=== PATIENT | female | born 1995 | race Hispanic/Latino ===

== ENCOUNTER 2018-11-05 22:31 | Inpatient (IN) | payer OTHER ==
[~2018-11-05 22:31] MED LIST: Bupivacaine/Epinephrine 0.25% 30 ML VIAL ONE
[2018-11-05 22:58] VITALS: BMI 22.4
[2018-11-05] MEDS: Lactated Ringer's 1,000 ML IV SCH (23:15)
[2018-11-05] MEDS ORDERED: Ondansetron PF 4 MG/2 ML Vial IVP PRN (23:19)
[2018-11-05] MEDS ORDERED: Butorphanol Tartrate 1 MG/ML VIAL SLOW IVP PRN (23:19)
[2018-11-05] MEDS ORDERED: Promethazine HCl 25 MG/ML VIAL IM PRN (23:19)
[2018-11-05] MEDS ORDERED: Acetaminophen 500 MG TAB PO PRN (23:19)
[2018-11-05] MEDS ORDERED: Carboprost 250 MCG/ML AMP IM PRN (23:30)
[2018-11-05] MEDS ORDERED: HYDROcodone/Acetaminophen 5/325 mg Tablet PO PRN ×2 (23:30)
[2018-11-05] MEDS ORDERED: Methylergonovine 0.2 MG/ML VIAL IM PRN (23:30)
[2018-11-05] MEDS ORDERED: Ibuprofen 800 MG TAB PO PRN (23:30)
[2018-11-05] MEDS ORDERED: Penicillin G Potassium 5 MILL.UNITS in Sodium Chloride 0.9% 100 ML IVPB SCH (23:30)
[2018-11-05] MEDS ORDERED: Misoprostol 200 MCG TAB RC PRN (23:30)
[2018-11-05] MEDS ORDERED: NS w/ Oxytocin 10 units 500 ML IV SCH ×2 (23:30)
[2018-11-05] MEDS ORDERED: Lidocaine 1% (PF) 30 ML VIAL SC PRN (23:30)
[2018-11-05 23:45] LABS: Hemoglobin 12.2 g/dL (12.0-16.0); Mean Corpuscular HGB CONC 33.4 g/dL (32.0-36.0); Mean Corpuscular Hemoglobin 29.6 pg (27.0-31.0); Mean Corpuscular Volume 88.7 fL (78.0-98.0); Mean Platelet Volume 8.9 fL (7.4-10.4); Platelet Count 249 thou/uL (130-400); RBC Distribution Width 12.3 % (11.5-14.5); Red Blood Cell (RBC) Count 4.12 mill/uL (4.20-5.40); White Blood Cell (WBC) Count 15.9 thou/uL (4.8-10.8)
[2018-11-05] MEDS ORDERED: Lidocaine 1.5%/Epinephrine 1:200,000 5 ML AMPUL IJ ONE (23:47)
[2018-11-05] MEDS ORDERED: Fentanyl 4 mcg/Bup 0.1% Cadd 100 ML ONE (23:48)
[2018-11-06] MEDS: Lactated Ringer's 1,000 ML IV SCH (00:27)
[2018-11-06] MEDS ORDERED: Promethazine HCl 25 MG/ML VIAL IM PRN (00:34)
[2018-11-06] MEDS ORDERED: Lactated Ringer's 500 ML IV PRN (00:34)
[2018-11-06] MEDS ORDERED: Ondansetron PF 4 MG/2 ML Vial IVP PRN ×2 (00:34→01:44)
[2018-11-06] MEDS ORDERED: Eucerin (Mineral Oil/Petrolatum,White) 30 gm Jar TOP PRN (00:34)
[2018-11-06] MEDS ORDERED: Acetaminophen 325 MG TAB PO PRN (00:34)
[2018-11-06] MEDS ORDERED: Naloxone HCl 0.4 mg/ml Vial IVP PRN ×2 (00:34)
[2018-11-06] MEDS ORDERED: ePHEDrine/0.9% NaCl/PF SYRINGE 50 mg/10 ml SLOW IVP PRN (00:34)
[2018-11-06] MEDS ORDERED: diphenhydrAMINE 50 MG/ML VIAL IVP PRN (00:34)
[2018-11-06] MEDS: Penicillin G 2.5 MILL.units 2.5 MILL.UNITS in Premix Bag 1 BAG IVPB SCH ×2 (00:38→00:39)
[2018-11-06] MEDS ORDERED: Communication Order-Pharmacy FS SCH (00:45)
[2018-11-06] MEDS ORDERED: Fentanyl 4 mcg/Bupivacaine 0.1% Cassette 100 ML EPIDURAL SCH (00:45)
[2018-11-06] MEDS: NS / Oxytocin 40 units/1000ml 1,000 ML IV SCH ×2 (01:32→02:58)
[2018-11-06] MEDS ORDERED: Preparation H Ointment 28 GM TUBE PR PRN (01:44)
[2018-11-06] MEDS ORDERED: Milk Of Magnesia 30 ML UDCUP PO PRN (01:44)
[2018-11-06] MEDS ORDERED: Benzocaine/Menthol 20-0.5% 60 ML CAN TOP PRN (01:44)
[2018-11-06] MEDS ORDERED: Misoprostol 200 MCG TAB VAG PRN (01:44)
[2018-11-06] MEDS ORDERED: Bisacodyl 10 MG SUPP PR PRN (01:44)
[2018-11-06] MEDS ORDERED: Zolpidem Tartrate 5 MG TAB PO PRN (01:44)
[2018-11-06] MEDS ORDERED: Acetaminophen/Codeine 30-300mg Tablet PO PRN ×2 (01:44)
[2018-11-06] MEDS ORDERED: diphenhydrAMINE 25 MG CAP PO PRN (01:44)
[2018-11-06] MEDS ORDERED: NS / Oxytocin 40 units/1000ml 1,000 ML IV SCH (01:45)
[2018-11-06 01:54] LABS: Syphilis Antibody Nonreactive (Nonreactive); Syphilis Antibody Index 0.03 S/CO (<1.00 Non-Reactive)
[2018-11-06 02:01] LABS: HBSAg Index 0.22 S/CO (0-0.99); HIV (1/2) Antibody/Antigen Non-Reactive (NonReactive); HIV 1/2 INDEX 0.09 S/CO (<1.00); Hep B Surf Ag Non-Reactive S/CO (NonReactive)
[2018-11-06] MEDS: Ibuprofen 800 MG TAB PO SCH ×2 (05:11→17:23)
[2018-11-06 06:51] LABS: Hemoglobin 10.5 g/dL (12.0-16.0); Mean Corpuscular HGB CONC 32.7 g/dL (32.0-36.0); Mean Corpuscular Hemoglobin 28.8 pg (27.0-31.0); Mean Corpuscular Volume 87.9 fL (78.0-98.0); Mean Platelet Volume 8.6 fL (7.4-10.4); Platelet Count 206 thou/uL (130-400); RBC Distribution Width 12.1 % (11.5-14.5); Red Blood Cell (RBC) Count 3.66 mill/uL (4.20-5.40); White Blood Cell (WBC) Count 21.8 thou/uL (4.8-10.8)
[2018-11-06] MEDS: Ferrous Sulfate 325 MG TAB PO SCH ×2 (07:38→17:24)
[2018-11-06] MEDS ORDERED: Adacel (T-DAP) 0.5 ML SYRINGE IM ONE (09:00)
[2018-11-06] MEDS: Prenatal Vitamin 1 TAB PO SCH (09:05)
[2018-11-06] MEDS: Docusate Calcium (SURFAK) 240 MG CAP PO SCH (09:05)
[2018-11-07] MEDS: Ibuprofen 800 MG TAB PO SCH ×4 (00:42→21:28)
[2018-11-07] MEDS: Docusate Calcium (SURFAK) 240 MG CAP PO SCH ×3 (00:42→21:28)
[2018-11-07] MEDS: Ferrous Sulfate 325 MG TAB PO SCH ×2 (07:34→16:39)
[2018-11-07] MEDS: Prenatal Vitamin 1 TAB PO SCH (09:18)
[2018-11-08] MEDS: Ibuprofen 800 MG TAB PO SCH (06:17)
[2018-11-08] MEDS: Ferrous Sulfate 325 MG TAB PO SCH (07:24)
[2018-11-08 08:20] VITALS: BP 98/59; TEMP 98
[2018-11-08] MEDS: Prenatal Vitamin 1 TAB PO SCH (09:23)
[2018-11-08] MEDS: Docusate Calcium (SURFAK) 240 MG CAP PO SCH (09:23)
== END 2018-11-08 13:00 | disposition home or self-care (01) | DRG 807 ==
LOC: L&D/OP 22:31 → L&D 23:26 → 3SW 11-06 03:17
PROVIDERS: ADMIT Obstetrics & Gynecology; ATTEND Obstetrics & Gynecology
PROC: 10E0XZZ Delivery of Products of Conception, External Approach (ICD-10-PCS; principal; 2018-11-06)
PROC: 10907ZC Drainage of Amniotic Fluid, Therapeutic from Products of Conception, Via Natural or Artificial Opening (ICD-10-PCS; 2018-11-06)
DX: O99.824 Streptococcus B carrier state complicating childbirth (principal); Z37.0 Single live birth; Z3A.37 37 weeks gestation of pregnancy
CPT/HCPCS: 36415; 51702; 85027; 86780; 86850; 86900; 86901; 87340; 87389; 99285; J2001; J2540; J3490; J7050

== ENCOUNTER 2019-05-10 12:02 | Emergency (ER) | payer OTHER ==
[~2019-05-10 12:02] MED LIST changes: -Bupivacaine/Epinephrine 0.25% 30 ML VIAL ONE; +ISOVUE-370 76%-LOCM 1 ML ONE
[2019-05-10 12:39] LABS: Hemoglobin 18.1 g/dL (12.0-16.0); Mean Corpuscular HGB CONC 33.9 g/dL (32.0-36.0); Mean Corpuscular Hemoglobin 29.7 pg (27.0-31.0); Mean Corpuscular Volume 87.6 fL (78.0-98.0); Mean Platelet Volume 8.1 fL (7.4-10.4); Platelet Count 203 thou/uL (130-400); RBC Distribution Width 12.5 % (11.5-14.5); White Blood Cell (WBC) Count 5.8 thou/uL (4.8-10.8)
[2019-05-10 12:59] LABS: ALT (SGPT) 22 U/L (8-55); AST (SGOT) 40 U/L (5-34); Albumin 4.5 g/dL (3.5-5.0); Alkaline Phosphatase 72 U/L (40-150); Anion Gap 19 mmol/L (10-20); BUN (Urea Nitrogen) 19 mg/dL (7.0-18.7); Bilirubin, Total 0.9 mg/dL (0.2-1.2); Calc. Creatinine Clearance 0 mL/min (70-130); Calcium 9.2 mg/dL (7.8-10.44); Carbon Dioxide 18 mmol/L (22-29); Chloride 100 mmol/L (98-107); Estimated GFR-MDRD 75; Globulin 3.3 g/dL (2.4-3.5); Glucose 87 mg/dL (70-105); Lipase 87 U/L (8-78); Potassium 3.6 mmol/L (3.5-5.1); Protein, Total 7.8 g/dL (6.0-8.3); Sodium 133 mmol/L (136-145)
[2019-05-10 13:03] LABS: Band 54 % (5-11); Lymphocytes 7 % (21-51); MDiff Complete? YES; Monocytes 4 % (0-10); Neutrophil 33 % (42-75); Platelet Morphology Comment Appears Adequate; Reactive Lymphocytes 2 % (0-10)
[2019-05-10 13:15] LABS: Bilirubin Small (Negative); Blood, Urine Small (Negative); Clarity CLEAR (Clear); Glucose, Urine (Dipstick) Negative (Negative); Leukocyte Negative (Negative); Nitrite Negative (Negative); Protein, Urine (Dipstick) 100 mg/dL (Neg-Trace); Specific Gravity, Urine 1.036 (1.002-1.036); Urobilinogen 0.2 mg/dL (0.2-1.0)
[2019-05-10 13:18] LABS: Bacteria/HPF None Seen HPF (None Seen); Hyaline Casts/LPF 4-6 HYALINE CAST LPF (0-3 Hyaline); Pathc Cast-AUWi Flag 0.68 (0-2.49); Pregnancy Test - Urine (BHCG) Negative (Negative); Pregu Control Background? CLEAR/WHITE (CLR/WHITE); Pregu Control Bar Appear? YES (CONTROL BAR); Specific Gravity 1.036 (1.002-1.036); WBC/HPF 0-3 HPF (0-3)
[2019-05-10 13:19] LABS: Renal Epithelial None Seen HPF (0-3); Transitional Epithelial NONE SEEN HPF (0-3)
[2019-05-10] MEDS ORDERED: Ondansetron PF 4 MG/2 ML Vial ONE ×2 (15:36→15:41)
[2019-05-10] MEDS ORDERED: Ketorolac Tromethamine 30 MG/ML VIAL ONE (15:36)
--- NOTE | 2019-05-10 15:49 | ULT ---
US Gallbladder RUQ: 05/10/2019 3:22 PM CLINICAL HISTORY: Abdominal pain. STUDY: Limited right upper quadrant ultrasound of abdomen. COMPARISON: None. FINDINGS: Liver: Size: Normal. Echogenicity: Normal. Contour: Smooth. Mass: None. Bile ducts: No intrahepatic or extrahepatic biliary dilatation. Common bile duct measures 2 mm. Gallbladder: Normal. Pancreas: Head, body, and tail appear normal. Right kidney: No pelvicalyceal dilatation. Right kidney measuring 8.8 cm in length. IMPRESSION: Unremarkable exam.
[2019-05-10] MEDS ORDERED: Promethazine HCl 25 MG/ML VIAL ONE (17:07)
--- NOTE | 2019-05-10 18:00 | CT ---
CT Abdomen Pelvis W Con History: Abdominal pain Comparison: Ultrasound same day Findings: Lung bases are clear. No pericardial effusion. Gallbladder, liver, spleen, pancreas are all normal. Kidneys are unremarkable. Unformed stool in the colon suggesting diarrheal process. The appendix is visualized and is normal. No acute osseous abnormality. There is fusion of the enlarged left L5 transverse process with the sac rum. Impression: Unformed stool throughout the colon suggesting infectious diarrheal process. Normal carol larson.
== END 2019-05-10 20:17 | disposition home or self-care (01) ==
LOC: ERS 12:02
DX: K52.9 Noninfective gastroenteritis and colitis, unspecified (principal)
CPT/HCPCS: 36415; 74177; 76705; 80053; 81003; 81015; 81025; 83690; 85025; 85060; 96361; 96374; 96375; J1885; J2405; J2550; Q9966